=== PATIENT | male | born 1950 | race Caucasian/White ===

== ENCOUNTER 2020-01-26 10:31 | Emergency (ER) | payer OTHER | END 2020-01-26 11:02 | disposition home or self-care (01) | LOC: JVIRT 10:31 | DX: Z11.59 Encounter for screening for other viral diseases (principal) | CPT/HCPCS: C9803; Q3014-GT; U0003 ==

== ENCOUNTER 2020-02-06 18:19 | Emergency (ER) | payer OTHER | END 2020-02-06 20:30 | disposition home or self-care (01) | LOC: JVIRT 18:19 | DX: Z03.818 Encounter for observation for suspected exposure to other biological agents ruled out (principal); J02.9 Acute pharyngitis, unspecified | CPT/HCPCS: C9803; G2012-GT; U0003 ==

== ENCOUNTER 2022-01-08 12:25 | Emergency (ER) | payer OTHER ==
[2022-01-08 12:36] VITALS: BP 176/84; PULSE 79; RESP 20; TEMP 98.7; BMI 27.6
== END 2022-01-08 15:30 | disposition home or self-care (01) ==
LOC: FER 12:25
DX: M25.562 Pain in left knee (principal)
CPT/HCPCS: 73562-TC-LT-FY; 99283-25

== ENCOUNTER 2022-06-28 08:35 | Day surgery (SDC) | payer BC ==
[2022-06-24 12:21] VITALS: BMI 26.2
[2022-06-28 13:44] VITALS: TEMP 97.4
[2022-06-28 13:49] VITALS: BP 124/68; PULSE 67; RESP 16
== END 2022-06-28 11:00 | disposition home or self-care (01) ==
LOC: FASU-ENDO 08:35
PROVIDERS: ATTEND Internal Medicine Gastroenterology
PROC: 0DJD8ZZ Inspection of Lower Intestinal Tract, Via Natural or Artificial Opening Endoscopic (ICD-10-PCS; principal; 2022-06-28 10:02)
DX: Z12.11 Encounter for screening for malignant neoplasm of colon (principal); Z86.010 Personal history of colon polyps; K57.30 Diverticulosis of large intestine without perforation or abscess without bleeding